=== PATIENT | male | born 1965 | race Caucasian/White ===

== ENCOUNTER → 2017-06-08 | Outpatient (CLI) | payer MEDICAID ==
[~2017-06-08] MED LIST: ASPIR 8181 MG PO
[2017-06-08 13:48] LABS: AMPHETAMINES/METAMPHETAMINES NEGATIVE ng/mL (<1000)
[2017-06-17 03:37] LABS: Opiates Negative (Cutoff=100)
== END ==
LOC: LAB 13:26
PROVIDERS: Emergency Medicine
DX: Z79.899 Other long term (current) drug therapy (principal)

== ENCOUNTER 2017-06-20 02:04 | Emergency (ER) | payer MEDICAID ==
[~2017-06-20] VITALS: Ht 190.5 cm; Wt 97.1 kg
--- OUTSIDE RECORDS SUMMARY | 2017-06-20 02:13 | External Medical Summary Rpt ---
Author Author , GABRIEL RIOS Address Unknown Phone [email or web address] Purpose Continuity of Care Document - 06-17-2013 through 2016 Problems Code Diagnosis DOS Provider Status R07.9 CHEST PAIN, UNSPECIFIED R55 SYNCOPE AND COLLAPSE Results Labs Lab Lab Date Result Refere Interp Status Commen Order Detail nces retati t Range on Drugs identified in Urine by Screen method (06-08-2017 11:00) Ampheta NEGATIV <1000 complet mine 017 E ed [Presen 11:00 ce] in Urine by Screen method 11-Hydr NEGATIV <50 complet oxy 017 E ed delta-9 11:00 tetrahy drocann abinol [Presen ce] in Unspeci fied specime n
--- OUTSIDE RECORDS SUMMARY | 2017-06-20 02:13 | External Medical Summary Rpt ---
Author Author , GABRIEL RIOS Address Unknown Phone .[email or web address] Purpose Continuity of Care Document - 06-17-2013 [...]
[2017-06-20] MEDS ORDERED: GABAPENTIN100 MG PO (02:14)
--- OUTSIDE RECORDS SUMMARY | 2017-06-20 02:14 | External Medical Summary Rpt ---
Demographics Preferred Language Botswanan Marital Status Unknown Worship Affiliation Unknown Race Unknown Ethnic Group Unknown Author Author , SUSANNA RIOS Address Unknown Phone Immunization Unable to retrieve immunization data due to connection failure with Immunization Registry. Please try again later.
--- OUTSIDE RECORDS SUMMARY | 2017-06-20 02:14 | External Medical Summary Rpt ---
Demographics Preferred Language Beninese Marital Status Unknown Baptist Affiliation Unknown Race Unknown Ethnic Group Unknown Author Author , SUSANNA RIOS Address Unknown Phone Immunization Unable to retrieve immunization data due to connection failure with Immunization Registry. Please try again later.
--- OUTSIDE RECORDS SUMMARY | 2017-06-20 02:14 | External Medical Summary Rpt ---
Demographics Preferred Language [place] Marital Status Unknown Mosque Affiliation Unknown Race Unknown Ethnic Group Unknown Author Author GABRIEL Address Unknown Phone [email or web address] Purpose Continuity of Care Document - through 2016
--- OUTSIDE RECORDS SUMMARY | 2017-06-20 02:14 | External Medical Summary Rpt ---
Demographics Preferred Language Maltese Marital Status Unknown Mandaen Affiliation Unknown Race Unknown Ethnic Group Unknown Author Author GABRIEL Address Unknown Phone [email or web address] Purpose Continuity of Care Document - through 2016
[2017-06-20] MEDS ORDERED: BUPROPION HCL75 M1 PO (02:15)
[2017-06-20] MEDS ORDERED: ATORVASTATIN CA10 M1 PO (02:15)
[2017-06-20] MEDS ORDERED: VENTOLIN H0.09 MG/Ac IH (02:15)
--- OUTSIDE RECORDS SUMMARY | 2017-06-20 02:15 | External Medical Summary Rpt ---
Author Author GABRIEL Ben, [employer] Organization [employer] Address Unknown Phone Unavailable Results Opiates and Oxycodone(GC/MS),U Observa Value Referen Units Interpr Notes Date tion ce etation Range Oxycodo Negativ Cutoff= No No Test Jun 08 ne/Oxym e 100 informa informa include 2017 orph tion in tion in s 11:00 source source Oxycodo AM data data ne and [employer] honePer formed at: [facility] [id number] [place], [place] [id number]Lab Directo r: Jw Grimaldo MD, Phone: [phone] Opiates Negativ Cutoff= No No Opiate Jun 08 e 100 informa informa test 2017 tion in tion in include 11:00 source source s AM data data Codeine , Morphin e, Hydromo rphone, Hydroco done. Drugs identified in Urine by Screen method Observa Value Referen Units Interpr Notes Date tion ce etation Range Positive urine drug screen samples are stored for 7 days. Contact the Lab if confirmation of positives is needed. Ampheta NEGATIV <1000 ng/mL No No Jun 08 mine E informa informa 2016 [Presen tion in tion in 11:00 ce] in source source AM Urine data data by Screen method Barbitura <200 ng/mL No No Jun 08 gilma informati informati 2016 [Mass/vol on in on in 11:00 AM ume] in source source Urine by data data Screen method Benzodiaz 200 ng/mL ng/mL No No Jun 08 epines informati informati 2016 [Mass/vol on in on in 11:00 AM ume] in source source Serum or data data Plasma by Screen method Cocaine <300 ng/g No No Jun 08 [Mass/vol informati informati 2016 ume] in on in on in 11:00 AM Unspecifi source source ed data data specimen Methadone <300 ng/mL No No Jun 08 informati informati 2017 [Mass/vol on in on in 11:00 AM ume] in source source Unspecifi data data ed specimen Opiates <300 ng/mL No No Jun 08 [Mass/vol informati informati 2016 ume] in on in on in 11:00 AM Unspecifi source source ed data data specimen Phencycli <25 ng/mL No No Jun 08 dine informati informati 2016 [Mass/vol on in on in 11:00 AM ume] in source source Unspecifi data data ed specimen 11-Hydr NEGATIV <50 ng/mL No No Jun 08 oxy E informa informa 2017 delta-9 tion in tion in 11:00 source source AM tetrahy data data drocann abinol [Presen ce] in Unspeci fied specime n Basic metabolic panel in Blood Observa Value Referen Units Interpr Notes Date tion ce etation Range Urea 7 - 18 mg/dL Normal No Apr 9 nitrogen informati 2017 6:38 [Mass/vol on in AM ume] in source Serum or data Plasma Calcium 8.5 - mg/dL Normal No May 04 [Mass/vol 10.1 informati 2017 6:38 ume] in on in AM Serum or source Plasma data Chloride 98 - 107 mmoL/L High No Apr 9 [Moles/vo informati 2017 6:38 lume] in on in AM Serum or source Plasma data Carbon 21.0 - mmoL/L Normal No Apr 9 dioxide, 32.0 informati 2017 6:38 total on in AM [Moles/vo source lume] in data Serum or Plasma Creatinin 0.70 - mg/dL Normal No Apr 9 e 1.30 informati 2017 6:38 [Mass/vol on in AM ume] in source Serum or data Plasma Creatinin 50 - 200 ML/MIN Normal No Lewis 9 e renal informati 2017 6:38 clearance on in AM source predicted data by Cockcroft -Gault formula Estimated >60 ML/MIN No REFERENCE Lewis 9 informati RANGE: 2017 6:38 glomerula on in >60 AM r source ML/MIN/1. filtratio data 73 SQUARE n rate METERSIf (GF this patient is -A merican, then multiply theresult by 1.210. Glucose 74 - 106 mg/dL Normal No Lewis 9 [Mass/vol informati 2017 6:38 ume] in on in AM Serum or source Plasma data Potassium 3.5 - 5.1 mmoL/L Normal No May 04 informati 2017 6:38 [Moles/vo on in AM lume] in source Serum or data Plasma Sodium 136 - 145 mmoL/L Normal No Apr 9 [Moles/vo informati 2017 6:38 lume] in on in AM Serum or source Plasma data CBC W Auto Differential panel in Blood Observa Value Referen Units Interpr Notes Date tion ce etation Range Basophils 0 - 0.2 K/MM3 Normal No May 04 informati 2017 6:38 [#/volume on in AM ] in source Blood by data Automated count Basophils 0.1 - 2.0 % Normal No May 04 /100 informati 2017 6:38 leukocyte on in AM s in source Blood by data Automated count Eosinophi 0.0 - 0.4 K/mm3 Normal No May 04 ls informati 2017 6:38 [#/volume on in AM ] in source Blood by data Automated count Eosinophi 0.1 - % Normal No May 04 ls/100 12.0 informati 2017 6:38 leukocyte on in AM s in source Blood by data Automated count Granulocy 1.3 - 8.0 K/mm3 Normal No May 04 gilma informati 2017 6:38 [#/volume on in AM ] in source Blood by data Automated count Granulocy 37.0 - % Normal No May 04 gilma/100 80.0 informati 2017 6:38 leukocyte on in AM s in source Blood by data Automated count Hematocri 42.0 - % Normal No May 04 t [Volume 52.0 informati 2017 6:38 on in AM Fraction] source of Blood data Hemoglobi 14.1 - g/dL Normal No May 04 n 18.0 informati 2017 6:38 [Mass/vol on in AM ume] in source Blood data Lymphocyt 0.7 - 4.5 K/mm3 Normal No May 04 es informati 2017 6:38 [#/volume on in AM ] in source Unspecifi data ed specimen by Automated count Lymphocyt 10 - 50 % Normal No May 04 es informati 2017 6:38 [#/volume on in AM ] in source Unspecifi data ed specimen by Automated count Erythrocy 27 - 31.2 pg Normal No May 04 te mean informati 2017 6:38 corpuscul on in AM ar source hemoglobi data n [Entitic mass] Erythrocy 31.8 - g/dl Normal No Apr 9 te mean 35.4 informati 2017 6:38 corpuscul on in AM ar source hemoglobi data n concentra tion [Mass/vol ume] by Automated count Erythrocy 82.2 - fl Normal No Apr 9 te mean 97.8 informati 2017 6:38 corpuscul on in AM ar volume source [Entitic data volume] by Automated count Monocytes 0.1 - 1.0 K/mm3 Normal No Apr 9 informati 2017 6:38 [#/volume on in AM ] in source Blood by data Automated count Monocytes 1.7 - 9.3 % Normal No Apr 9 / informati 2017 6:38 leukocyte on in AM s in source Blood by data Automated count Platelet 7.4 - fl Normal No Apr 9 mean 10.4 informati 2017 6:38 volume on in AM [Entitic source volume] data in Blood by Automated count Platelets 142 - 424 K/mm3 Normal No Apr 9 informati 2017 6:38 [#/volume on in AM ] in source Blood data Erythrocy 4.6 - 6.2 M/mm3 Normal No Apr 9 gilma informati 2017 6:38 [#/volume on in AM ] in source Amniotic data fluid Erythrocy 11.5 - % Normal No Apr 9 te 17.5 informati 2017 6:38 distribut on in AM ion width source [Entitic data volume] by Automated count Leukocyte 4.8 - K/MM3 Normal No Apr 9 s 10.8 informati 2017 6:38 [#/volume on in AM ] in source Blood data CBC W Auto Differential panel in Blood Observa Value Referen Units Interpr Notes Date tion ce etation Range Basophils 0 - 0.2 K/MM3 Normal No Apr 8 informati 2017 4:10 [#/volume on in PM ] in source Blood by data Automated count Basophils 0.1 - 2.0 % Normal No Apr 8 / informati 2017 4:10 leukocyte on in PM s in source Blood by data Automated count Eosinophi 0.0 - 0.4 K/mm3 Normal No Apr 8 ls informati 2017 4:10 [#/volume on in PM ] in source Blood by data Automated count Eosinophi 0.1 - % Normal No May 03 ls/100 12.0 informati 2016 4:10 leukocyte on in PM s in source Blood by data Automated count Granulocy 1.3 - 8.0 K/mm3 Normal No Apr 8 gilma informati 2016 4:10 [#/volume on in PM ] in source Blood by data Automated count Granulocy 37.0 - % Normal No Apr 8 gilma/100 80.0 informati 2017 4:10 leukocyte on in PM s in source Blood by data Automated count Hematocri 42.0 - % Normal No Apr 8 t [Volume 52.0 informati 2016 4:10 on in PM Fraction] source of Blood data Hemoglobi 14.1 - g/dL Normal No Apr 8 n 18.0 informati 2016 4:10 [Mass/vol on in PM ume] in source Blood data Lymphocyt 0.7 - 4.5 K/mm3 Normal No Apr 8 es informati 2017 4:10 [#/volume on in PM ] in source Unspecifi data ed specimen by Automated count Lymphocyt 10 - 50 % Normal No May 03 es informati 2016 4:10 [#/volume on in PM ] in source Unspecifi data ed specimen by Automated count Erythrocy 27 - 31.2 pg Normal No Apr 8 te mean informati 2016 4:10 corpuscul on in PM ar source hemoglobi data n [Entitic mass] Erythrocy 31.8 - g/dl Normal No May 03 te mean 35.4 informati 2016 4:10 corpuscul on in PM ar source hemoglobi data n concentra tion [Mass/vol ume] by Automated count Erythrocy 82.2 - fl Normal No May 03 te mean 97.8 informati 2016 4:10 corpuscul on in PM ar volume source [Entitic data volume] by Automated count Monocytes 0.1 - 1.0 K/mm3 Normal No Apr 8 informati 2016 4:10 [#/volume on in PM ] in source Blood by data Automated count Monocytes 1.7 - 9.3 % Normal No Apr 8 /100 informati 2017 4:10 leukocyte on in PM s in source Blood by data Automated count Platelet 7.4 - fl Normal No Apr 8 mean 10.4 informati 2016 4:10 volume on in PM [Entitic source volume] data in Blood by Automated count Platelets 142 - 424 K/mm3 Normal No Apr 8 informati 2016 4:10 [#/volume on in PM ] in source Blood data Erythrocy 4.6 - 6.2 M/mm3 Normal No Apr 8 gilma informati 2016 4:10 [#/volume on in PM ] in source Amniotic data fluid Erythrocy 11.5 - % Normal No Apr 8 te 17.5 informati 2016 4:10 distribut on in PM ion width source [Entitic data volume] by Automated count Leukocyte 4.8 - K/MM3 Normal No Apr 8 s 10.8 informati 2016 4:10 [#/volume on in PM ] in source Blood data XR CALCANEUS LEFT AP AND LATERAL Observa Value Referen Units Interpr Notes Date ti ce etation Range No No No No Nov 22 014\.br informa informa informa informa 2013 \\.br\T tion in tion in tion in tion in 5:12 PM wo-view source source source source left data data data data os calcis: \.br\\. br\HIST ORY: Acute trauma. Focal heel pain. No prior films.\ .br\\.b r\No focal calcane al fractur e or bony cortica l injury. Minimal soft tissue\ .br\swe lling involve s the\.br \groover and turner ior hindfoo t region. \.br\\. br\IMPR ESSION: \.br\\. br\No evidenc e of fractur e. Chl/GC Urine Results Observa Value Referen Units Interpr Notes Date ti ce etation Range C. Urine No No No Extract Jun 18 trachom informa informa informa ion of 2013 atis/N. tion in tion in tion in genetic 6:00 AM source source source gonorrh data data data materia oeae l from Specime urine n and Thin Prep samples was perform ed using a method that was develop ed and validat ed in the perform ing laborat ory. Detaile d methodo logy is availab le upon request .\.br\ Chlamyd Negativ No No No No Jun 18 ia e informa informa informa informa 2013 trachom tion in tion in tion in tion in 6:00 AM atis source source source source data data data data Neisser Positiv No No Abnorma No Jun 18 ia e informa informa l informa 2013 gonorrh tion in tion in tion in 6:00 AM oeae source source source data data data UA Observa Value Referen Units Interpr Notes Date tion ce etation Range UA Yellow No No No No Jun 17 Color informa informa informa informa 2013 tion in tion in tion in tion in 12:42 source source source source AM data data data data UA Slightl Clear No Abnorma No Jun 17 Appear y Hazy informa l informa 2012 tion in tion in 12:42 source source AM data data UA Negativ Negativ No No No Jun 17 Glucose e e informa informa informa 2012 tion in tion in tion in 12:42 source source source AM data data data UA Negativ Negativ No No No Jun 17 Ketones e e informa informa informa 2012 tion in tion in tion in 12:42 source source source AM data data data UA Small Negativ No Abnorma No Jun 17 Blood e informa l informa 2012 tion in tion in 12:42 source source AM data data UA pH 6.5 5.0 - No No No Jun 17 8.0 informa informa informa 2012 tion in tion in ti in 12:42 source source source AM data data data Protein Negativ Negativ No No No Jun 17 e e informa informa informa 2013 [Mass/v tion in tion in ti in 12:42 olume] source source source AM in data data data Urine by Test strip UA 0.2 <=1 No No No Jun 17 Urobili mg/dl mg/dl informa informa informa 2012 nogen tion in tion in ti in 12:42 source source source AM data data data UA Negativ Negativ No No No Jun 17 Nitrite e e informa informa informa 2012 tion in tion in tion in 12:42 source source source AM data data data UA Leuk Negativ Negativ No No No Jun 17 Est e e informa informa informa 2012 tion in tion in tion in 12:42 source source source AM data data data UA Spec 1.020 1.001 - No No No Jun 17 Grav 1.035 informa informa informa 2012 tion in tion in tion in 12:42 source source source AM data data data Leukocy 0-3 No /HPF No No Jun 17 gilma informa informa informa 2013 [#/area tion in tion in tion in 12:42 ] in source source source AM Urine data data data eryn t by Microsc opy high power field UA RBC 10-15 No /HPF No No Jun 17 informa informa informa 2013 tion in tion in tion in 12:42 source source source AM data data data UA Rare No No No No Jun 17 Squam informa informa informa informa 2013 Epi tion in tion in tion in tion in 12:42 source source source source AM data data data data UA Trace No No No No Jun 17 Bacteri informa informa informa informa 2013 a tion in tion in tion in tion in 12:42 source source source source AM data data data data POC UA Observa Value Referen Units Interpr Notes Date tion ce etation Range UA Yellow No No No No Jun 17 Color informa informa informa informa 2013 POC tion in tion in tion in tion in 12:12 source source source source AM data data data data UA Clear Clear No No No Jun 17 Appear informa informa informa 2013 POC tion in tion in tion in 12:12 source source source AM data data data UA Gluc Negativ Negativ No No No Jun 17 POC e e informa informa informa 2013 tion in tion in tion in 12:12 source source source AM data data data UA Negativ Negativ No No No Jun 17 Ketones e e informa informa informa 2013 POC tion in tion in tion in 12:12 source source source AM data data data UA Moderat Negativ No Abnorma No Jun 17 Blood e e informa l informa 2013 POC tion in tion in 12:12 source source AM data data UA pH 7.0 5.0 - No No No Jun 17 POC 8.0 informa informa informa 2013 tion in tion in tion in 12:12 source source source AM data data data UA Negativ Negativ No No No Jun 17 Protein e e informa informa informa 2013 POC tion in tion in tion in 12:12 source source source AM data data data UA 0.2 <=1 No No No Jun 17 Urobili mg/dl mg/dl informa informa informa 2013 nogen tion in tion in tion in 12:12 POC source source source AM data data data UA Negativ Negativ No No No Jun 17 Nitrite e e informa informa informa 2013 POC tion in tion in tion in 12:12 source source source AM data data data UA Leuk Negativ Negativ No No No Jun 17 Est e e informa informa informa 2013 POC tion in tion in tion in 12:12 source source source AM data data data UA SG 1.020 1.001 - No No No Jun 17 POC 1.035 informa informa informa 2013 tion in tion in tion in 12:12 source source source AM data data data
--- OUTSIDE RECORDS SUMMARY | 2017-06-20 02:15 | External Medical Summary Rpt ---
[...] data ne and [employer] honePer formed at: [facility] [id number] [place], [place] [id number]Lab Directo r: Jw Grimaldo MD, Phone: [phone] Opiates Negativ Cutoff= No No Opiate Jun [...] soft tissue\ .br\swe lling involve s the\.br \director distribution ior hindfoo t region. \.br\\. br\IMPR ESSION: [...]
--- NOTE | 2017-06-20 02:28 | Emergency Room Report ---
History of Present Illness Time Seen by MD Baugh Presenting Problem in Triage Pt arrived:Walked Presenting Problem:PT C/O VOICE CHANGES WITH RASPY VOICE ONSET 1000 YESTERDAY. 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 N Clinical Suspician of Infection? N Mental Status: 1 - Regular (Normal Baseline) Sepsis Risk:Low Sepsis Risk Have you (or family members/close friends) recently traveled outside the [place]? N If Yes, where/when: Have you had exposure to infectious disease within the past month? N TB? Other? Specify: Source patient, RN notes reviewed, family, old records Exam Limitations no limitations Comment pt with sore throat and laryngitis this am with no chest pain or sig cough and sx started this am Cardiac Chest Pain Chest pain indicative of cardiac No Timing/Duration this evening Severity moderate ALLERGIES Coded Allergies: morphine (Mild, I-RASH 06/20/17) Home Medications Active Scripts Aspirin (Aspirin EC 81MG Tab) 81 MG PO DAILY 30 Days Ref 1 Prov: 05/04/17 Reported Medications Gabapentin (Gabapentin 100MG) 100 MG PO QHS #90 Atorvastatin Calcium 10 MG PO DAILY #30 BUPROPION HCL (Bupropion HCl 75MG) 75 MG PO DAILY #60 Albuterol Sulfate (Ventolin Hfa) 0.09 MG IH PRN PRN ASTHMA #18 History Medical History General CAD? No Angina: No IN: No Hypertension? No Hyperlipidemia? No CHF? No DVT? No PE? No COPD? No Asthma? Yes Anemia? No GERD? No Gastric ulcers? No GI Bleed? No Hernia? No Thyroid Problems? No Hypothyroidism? No CVA? Yes Seizures? No Diabetes? No Renal Insuffiency? No End Stage Renal Disease? No UTI? No Stones? No BPH? No GB Disease: No Nephritic Syndrome? No Asplenia? No Hepatitis? Yes Sickle Cell Disease? No Arthritis? Yes Migraines? No Cataracts? No Glaucoma? No MRSA? No HIV? No TB? No Anxiety? Yes Depression? No Cancer? No More? No Immunization Hx DT/Tetanus Unknown Pneumonia Refuses Surgical Hx Previous Surgery?Y RIGHT HAND Family History Family Hx Diabetes Yes CAD Yes Hypertension Yes Hyperlipidemia Yes Cancer No TB No Social History Smoking Hx Smoker: Current Every Day Smoker Tobacco: Yes Type Cigarettes Packs/day 1 1/2 - 2 Packs Alcohol Alcohol: No Drugs none Review of Systems All Other Systems Reviewed and Negative Constitutional denies fever Eyes denies drainage ENT denies: ear pain, epistaxis, throat pain. Respiratory see HPI, cough, shortness of breath, denies wheezing Cardiovascular denies chest pain, denies syncope Gastrointestinal denies abdominal pain, denies diarrhea, denies vomiting Genitourinary denies: dysuria, frequency, hesitancy, hematuria. Musculoskeletal denies back pain, denies joint pain, denies joint swelling, denies neck pain Skin denies rash Psychiatric/Neurological denies headache, denies seizure Physical Exam Vital Signs Vital Signs Date Time Temp Pulse Resp B/P Pulse O2 O2 Flow FiO2 Ox Delivery Rate 06/20 0301 80 18 146/97 94 06/20 0245 80 18 164/111 94 06/20 0206 98.6 90 18 157/98 96 - WBC >12,000 or <4,000 or 10% bands? 2 or more SIRS Criteria Met? B/P:146/97 MAP:117 Creatinine >2.0? UA output<0.5ml/kg/hr for 2 hrs? Platelet count >100,000? Lactate >2.0mmol/1? INR >1.2 or PTT > than 60 sec? Evidence of Organ Dysfunction? Provider documented clinical suspician of infection? N Sepsis Criteria Count: 1 Sepsis Risk: Low Sepsis Risk General Appearance no apparent distress Eye Exam - bilateral eye PERRL, bilateral eye EOMI Ear, Nose, Throat pharyngeal erythema, swollen uvulae Neck supple Respiratory Status No: respiratory distress. Lung Sounds bilateral: rhonchi. 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 No Results/Orders Laboratory Tests 06/20/17 0213: Sodium 139, Potassium 4.2, Chloride 101, Carbon Dioxide 30, BUN 14, Creatinine 1.0, Estimated Creat Clear 120, Estimated GFR (MDRD) 79, Glucose 123 H, Calcium 10.2 H, Total Bilirubin 1.2 H, AST 65 H, ALT 85 H, Alkaline Phosphatase 78, Creatine Kinase 444 H, CK-MB (CK-2) Rel Index 0.2, CK and CKMB Interp 0.7, Troponin I < 0.02, Total Protein 8.5 H, Albumin 4.0, Globulin 4.5 H, Albumin/ Globulin Ratio 0.9 L, WBC 7.8, RBC 5.49, Hgb 16.5, Hct 49.5, MCV 90.3, RDW 12.9 , Plt Count 180, MPV 9.2, Gran % 52.6, Gran # 4.1, Lymphocytes % 38.1, Monocytes % 7.3, Eosinophils % 1.5, Basophils % 0.5, Lymphocytes # 3.0, Monocytes # 0.6, Eosinophils # 0.1, Basophils # 0.0, PUBS MCHC 33.3, MCH 30.1 Current Medication Orders Sig/David Start time Last Medication Dose Route Stop Time Status Admin Furosemide 0 .STK-MED ONE 06/20 257 DC .ROUTE Ceftriaxone Sodium 0 .STK-MED ONE 06/20 256 DC IV Methylprednisolone 0 .STK-MED ONE 06/20 256 DC Sodium Succinate .ROUTE Sodium Chloride 50 ML .STK-MED ONE 06/20 255 DC IV Ceftriaxone Sodium 1 GM ONCE ONE 06/20 245 DC 06/20 Sodium Chloride 50 ML IV 06/204 0300 Furosemide 40 MG ONCE ONE 06/20 245 DC 06/20 IV 06/20 246 0300 Methylprednisolone 125 MG ONCE ONE 06/20 245 DC 06/20 Sodium Succinate IV 06/20 246 0300 Albuterol/Ipratropium 0 .STK-MED ONE 06/20 225 DC INH Albuterol/Ipratropium 3 ML ONCE ONE 06/20 215 DC INH 06/20 216 Sodium Chloride 10 ML PRN PRN 06/20 215 AC IV 06/21 211 Orders Procedure Date/time Status RT REQUEST DUONEB 06/20 212 Active CHEST(2 VIEWS-NOT PORTABLE) 06/20 212 Active IV SALINE LOCK 06/20 212 Active CBC WITH AUTO DIFF 06/20 212 Complete CARDIAC ENZYMES 06/20 212 Complete CHEM 12 PROFILE 06/20 212 Complete XRAY/CT/US XRAY/CT/US XRAY chest XR interpretation by reviewed by me Xray Results abnormal (copd/chf) Departure Departure Time of Disposition 352 Disposition DC Home or Self Care(routine) Clinical Impression Primary Impression: Uvulitis Condition STABLE Referrals Malia RODRIGUEZ,Jw Rowland (Family) Patient Instructions DI for Uvulitis Additional Instructions use meds and see pcp for follow up Discharge Counseling Counseled pt/family regarding diagnosis, test results, medications/RX, follow up needs Prescriptions Current Visit Scripts Azithromycin (Zithromycin (Z-PANKAJ) 250MG Tab) 250 MG PO DAILY #6 TAB TAKE TWO (2) TABLETS ON DAY 1, THEN ONE (1) TABLET DAY #2 THRU #5 Prednisone (Prednisone 20MG) 20 MG PO BID #10 TAB ED Critical Care [place] [address]01
[2017-06-20 02:40] LABS: HEMOGLOBIN 16.5 g/dL (14.1-18.0); LYMPH % 38.1 % (10-50)
[2017-06-20 02:48] LABS: BUN 14 mg/dL (7-18)
[2017-06-20 02:50] LABS: GFR (ESTIMATED) 79 ML/MIN (>60)
[2017-06-20] MEDS ORDERED: PREDNISONE 20MG20 MG PO (04:01)
[2017-06-20] MEDS ORDERED: ZITHROMAX Z PA250 MG PO (04:01)
[2017-06-20 04:10] VITALS: BP 125/76
--- NOTE | 2017-06-20 06:18 | RADIOLOGY REPORT PS360 ---
CHEST(2 VIEWS-NOT PORTABLE) HISTORY: Shortness breath sob ORDERING PHYSICIAN: Amos Finley MD PATIENT AGE: 52 years COMPARISON: 05/03/2017 FINDINGS: The cardiomediastinal silhouette and pulmonary vascularity are within normal limits. There is hyperinflation with attenuation of the peripheral pulmonary vessels consistent with COPD. There are atelectatic changes in the lung bases. No lobar consolidation or collapse. No acute bony anomalies. IMPRESSION: COPD with bibasilar atelectatic change.
== END 2017-06-20 04:13 | disposition home or self-care (01) ==
LOC: ER 02:04
PROVIDERS: Emergency Medicine
DX: K12.2 Cellulitis and abscess of mouth (principal)

== ENCOUNTER → 2017-08-21 | Outpatient (CLI) | payer MEDICAID ==
[~2017-08-21] MED LIST changes: +ATORVASTATIN CA10 M1 PO; +BUPROPION HCL75 M1 PO; +GABAPENTIN100 MG PO; +PREDNISONE 20MG20 MG PO; +VENTOLIN H0.09 MG/Ac IH; +ZITHROMAX Z PA250 MG PO
[2017-08-21 14:46] LABS: HEMOGLOBIN 16.5 g/dL (14.1-18.0)
[2017-08-21 14:47] LABS: LYMPH # 2.7 K/mm3 (0.7-4.5); LYMPH % 37.4 % (10-50)
[2017-08-22 06:37] LABS: HBsAg Screen Negative (Negative); HIV Screen 4th Generation wRfx Non Reactive (Non Reactive); Hep A Ab, IgM Negative (Negative); Hep B Core Ab, IgM Negative (Negative); Hep C Virus Ab >11.0 (0.0-0.9)
== END ==
LOC: LAB 12:46
PROVIDERS: Nurse Practitioner Family
DX: R07.9 Chest pain, unspecified (principal); W46.1XXA Contact with contaminated hypodermic needle, initial encounter
CPT/HCPCS: G0432

== ENCOUNTER → 2017-08-28 | Outpatient (CLI) | payer MEDICAID ==
[2017-09-02 03:35] LABS: Hepatitis C Genotype 1a (.)
== END ==
LOC: LAB 12:17
PROVIDERS: Emergency Medicine
DX: B19.20 Unspecified viral hepatitis C without hepatic coma (principal)

== ENCOUNTER → 2017-08-30 | Outpatient (CLI) | payer MEDICAID ==
--- NOTE | 2017-08-30 16:35 | RADIOLOGY REPORT PS360 ---
PROCEDURE: 2-D M-mode and color Doppler study INDICATIONS FOR THE TEST: Chest pain X COPD Heart Murmur Tobacco SmokingX Palpitations Fatigue Syncope Edema Hypertension Diabetes Mellitus Rheumatic Fever SOBXDOE Obesity HyperlipidemiaX Family History HD Additional History PATIENT INFORMATION HEIGHT: 75 WEIGHT:210 GENDER: Male B/P:120/70 2-D/M-MODE INTERPRETATION: 2-D MEASUREMENTS OBSERVED VALUES IN CMS Right Ventricular Dimension (RVDd) 2.6 Interventricular Septum (Thickness)(IVsd) 1.1 Left Ventricular Internal Dimensions(LVIDd) 5.3 Left Ventricular Posterior Wall (Thickness)(LVPWd) .9 Aortic Root 3.5 Aortic Cusp Separation 2.2 Left Atrial Dimensions (LAD) 3.0 2D 1. Left atrium is normal size, left ventricle is normal size, there is no concentric left ventricular hypertrophy, visually estimated ejection fraction 50% with no obvious regional wall motion abnormality. 2. The right atrium and right ventricle are relatively normal size and function. 3. The aortic valve is minimally thickened and fibrosed. 4. The mitral and tricuspid valve are structurally normal. 5. Pulmonic valve is poorly visualized. 6. No significant pericardial effusion noted. DOPPLER INTERROGATION: Doppler interrogation of the aortic, mitral and tricuspid valvular presence of mild mitral and tricuspid regurgitation, tricuspid and jet velocity insufficient for calculation of the right ventricular systolic pressure, grade 1 diastolic dysfunction seen without tissue Doppler evidence of raised left atrial pressure. CONCLUSION: 1. Normal left ventricular size, visually estimated ejection fraction 50% with no obvious regional wall motion abnormality. Grade 1 diastolic dysfunction seen without tissue Doppler evidence of raised left atrial pressure. 2. Mild mitral and tricuspid regurgitation. 3. No significant pericardial effusion noted.
== END ==
LOC: RT 07:56
DX: R07.9 Chest pain, unspecified (principal)